=== PATIENT | male | born 1970 | race Caucasian/White ===

== ENCOUNTER 2022-09-08 05:23 | Emergency (ER) | payer SELFPAY ==
[2022-09-08 06:21] LABS: CORONAVIRUS COVID-19 NAA NEGATIVE (NEGATIVE)
[2022-09-08] MEDS ORDERED: Ondansetron 4 MG/2 ML SDV IVPUSH ONE (06:35)
== END 2022-09-08 07:35 | disposition home or self-care (01) ==
LOC: JD.ED 05:23
DX: R11.2 Nausea with vomiting, unspecified (principal); F17.210 Nicotine dependence, cigarettes, uncomplicated
CPT/HCPCS: 0241U; 36415; 74022; 80053; 84484; 85025; 85610; 85730; 93005; 96374; 99284; J2405; 93010; 99283